=== PATIENT | female | born 1955 | race Caucasian/White ===

== ENCOUNTER 2017-11-19 08:05 | Emergency (ER) | payer OTHER ==
[~2017-11-19] VITALS: Ht 157.5 cm; Wt 53.8 kg
[~2017-11-19 08:05] MED LIST: Advair 250/50 Diskus IH; CALCITRATE + D1 EACH PO; CO Q-10100 MG PO; FISH OIL 1,2001 EAC4 PO; KEFLEX500 MG PO; MOTRIN800 MG PO; Medrol Dosepak PO; ONCE DAILY1 EACH PO; Proventil,Ventolin H IH; TYLENOL EXTRA500 MG PO
[2017-11-19] MEDS ORDERED: MOTRIN800 MG PO (09:35)
[2017-11-19 09:45] VITALS: BP 128/87
== END 2017-11-19 09:52 | disposition home or self-care (01) ==
LOC: EME 08:05
DX: M19.072 Primary osteoarthritis, left ankle and foot (principal); F32.9 Major depressive disorder, single episode, unspecified; Z88.5 Allergy status to narcotic agent; F17.200 Nicotine dependence, unspecified, uncomplicated
CPT/HCPCS: 73630